=== PATIENT | female | born 1985 | race Caucasian/White ===

== ENCOUNTER 2022-09-08 09:18 | Outpatient (CLI) | payer OTHER, SELFPAY ==
[2022-09-08 13:39] LABS: Chloride* 107 mmol/L (96-114)
[2022-09-08 13:40] LABS: Albumin* 4.1 g/dL (3.3-5.0); Sodium* 140 mmol/L (135-149)
[2022-09-08 13:43] LABS: Alanine Aminotransferase* 24 U/L (4-35); Alkaline Phosphatase* 40 U/L (40-150); Aspartate Amino Transferase* 20 U/L (12-35); Bilirubin Total* 0.6 mg/dL (0.1-1.5); Blood Urea Nitrogen* 12 mg/dL (5-24); Calcium* 9.4 mg/dL (8.4-10.6); Carbon Dioxide* 28 mmol/L (20-32); Creatinine* 0.8 mg/dL (0.5-1.5); Estimated Glomerular Filt Rate 97 ml/min; Glucose* 89 mg/dL (60-115); Total Protein* 6.8 g/dL (6.0-8.3)
[2022-09-08 13:54] LABS: Vitamin D 25 Hydroxy* 71 ng/mL (30-80)
== END 2022-09-08 09:19 | disposition home or self-care (01) ==
PROVIDERS: Visit Provider Nurse Practitioner Family
DX: Z79.899 Other long term (current) drug therapy (principal); F41.9 Anxiety disorder, unspecified; F32.2 Major depressive disorder, single episode, severe without psychotic features
CPT/HCPCS: 80053; 82306; 84443

== ENCOUNTER 2023-09-29 10:21 | Outpatient (CLI) | payer OTHER, SELFPAY | END 2023-09-29 10:22 | disposition home or self-care (01) | LOC: NFLDREF 09-30 07:19 | PROVIDERS: Visit Provider Advanced Practice Midwife | DX: Z13.220 Encounter for screening for lipoid disorders (principal); Z68.41 Body mass index [BMI] 40.0-44.9, adult; R63.5 Abnormal weight gain | CPT/HCPCS: 80061 ==

== ENCOUNTER 2024-04-25 13:28 | Outpatient (CLI) | payer OTHER, SELFPAY ==
--- NOTE | 2024-04-25 13:40 | CRLHL7_ITS ---
For Patients: As a result of the Century Cures Act, medical imaging exams and procedure reports are released immediately into your electronic medical record. You may view this report before your referring provider. If you have questions, please contact your health care provider. BILATERAL SCREENING MAMMOGRAM WITH COMPUTER-AIDED DETECTION AND TOMOSYNTHESIS TECHNIQUE: CC and MLO views were obtained. These mammographic images have been obtained using full-field digital technique. These mammographic images were interpreted with the benefit of computer-aided detection. Breast Tomosynthesis was used in this interpretation. COMPARISON FILM: Baseline. FINDINGS: The breasts are almost entirely fatty. IMPRESSION: There is no radiographic evidence for malignancy. ASSESSMENT: BI-RADS Category 1: Negative RECOMMENDATION: Routine screening mammogram in 1 year. A lay language report of this examination will be provided to the patient. Kaz Gutierres M.D. Diagnostic Radiologist [email or web address] SP/Dictated by: Kaz Gutierres MD @ 04/26/2024 9:40:00 AM (Electronically Signed)
== END 2024-04-25 13:29 | disposition home or self-care (01) ==
LOC: MAMMO 13:31
PROVIDERS: PCP Advanced Practice Midwife; Visit Provider Emergency Medicine
DX: Z12.31 Encounter for screening mammogram for malignant neoplasm of breast (principal)
CPT/HCPCS: 77063; 77067